=== PATIENT | male | born 1995 | race Hispanic/Latino ===

== ENCOUNTER 2018-08-28 23:07 | Emergency (ER) | payer OTHER ==
[2018-08-28] MEDS ORDERED: TETRACAINE HCL 0.5% 4 ML OPHTH SOLN ONE (23:20)
[2018-08-28] MEDS ORDERED: FLUORESCEIN SODIUM 0.6 MG STRIP ONE (23:21)
[2018-08-28] MEDS ORDERED: NA BORATE/BORIC AC/H2O/NACL 120 ML OPHTH IRRIG SOLN ONE (23:21)
[2018-08-28] MEDS ORDERED: IBUPROFEN 400 MG TABLET ONE (23:39)
[2018-08-28] MEDS ORDERED: DIPHENHYDRAMINE HCL 25 MG CAPSULE ONE (23:39)
[2018-08-28] MEDS ORDERED: ERYTHROMYCIN BASE 0.5% OPHTH OINT 1 GM TUBE ONE (23:45)
== END 2018-08-29 00:09 | disposition home or self-care (01) ==
LOC: EDH 23:07
DX: H10.9 Unspecified conjunctivitis (principal)
CPT/HCPCS: 99284; Q0163

== ENCOUNTER 2021-02-14 20:11 | Emergency (ER) | payer SELFPAY ==
[2021-02-14] MEDS ORDERED: KETOROLAC 30MG VIAL (30MG/ML) ONE (22:09)
[2021-02-14 22:27] LABS: BASOPHILS % (AUTO) 0.3 % (0.0-5.0); EOSINOPHILS % (AUTO) 1.9 % (0.0-8.0); HEMATOCRIT 50.4 % (42-54); LYMPHOCYTES % (AUTO) 18.6 % (21.0-51.0); MEAN CORPUSCULAR HEMOGLOBIN 29.9 pg (27.0-33.0); MEAN CORPUSCULAR HGB CONC 32.9 g/dL (32.0-36.0); MEAN CORPUSCULAR VOLUME 90.8 fL (79-99); MONOCYTES % (AUTO) 5.6 % (3.0-13.0); NEUTROPHILS % (AUTO) 73.4 % (40.0-77.0); PLATELET COUNT (AUTO) 238 K/uL (130-400); RED BLOOD CELL COUNT(AUTO) 5.55 MIL/uL (4.50-6.20); RED CELL DISTRIBUTION WIDTH 13.2 % (11.0-15.5); WHITE BLOOD COUNT (AUTO) 12.9 K/uL (4.8-10.8)
[2021-02-14 22:36] LABS: APPEARANCE,URINE Clear (CLEAR); BILIRUBIN,URINE Negative (NEGATIVE); COLOR,URINE Yellow (YELLOW); GLUCOSE, URINE (UA) Negative (NEGATIVE); KETONES,URINE 40 mg/dL (NEGATIVE); LEUKOCYTE ESTERASE ,URINE Negative (NEGATIVE); NITRATE,URINE Negative (NEGATIVE); OCCULT BLOOD,URINE Negative (NEGATIVE); PROTEIN,URINE Negative (NEGATIVE)
[2021-02-14 22:37] LABS: CREATININE 0.8 mg/dL (0.5-1.5); POTASSIUM 3.5 mmol/L (3.5-5.1)
[2021-02-14 22:42] LABS: ALBUMIN 4.7 g/dL (3.5-5.0); BILIRUBIN,TOTAL 0.4 mg/dL (0.2-1.0); TOTAL PROTEIN, SERUM 8.2 g/dL (6.0-8.3)
== END 2021-02-14 23:58 | disposition home or self-care (01) ==
LOC: EDH 20:11
DX: R51.9 Headache, unspecified (principal); R11.2 Nausea with vomiting, unspecified; R09.81 Nasal congestion; Z20.822 Contact with and (suspected) exposure to COVID-19; Z72.0 Tobacco use
CPT/HCPCS: 36415; 70450; 80053; 81003; 85025; 87426; 87804 ×2; 87880; 96372; 99284; J1885; U0003